=== PATIENT | female | born 1970 | race Caucasian/White ===

== ENCOUNTER 2016-09-12 06:33 | Day surgery (SDC) | payer BC, OTHER ==
[2016-09-08 11:52] VITALS: BMI 23.6
[~2016-09-12 06:33] MED LIST: BUPIVACAINE HCL/PF 0.5% (5MG/ML) 10 ML VIAL IJ ONE
[2016-09-12] MEDS ORDERED: MIDAZOLAM HCL 2 MG/2 ML SINGLE DOSE VIAL ONE (07:17)
[2016-09-12] MEDS ORDERED: PROPOFOL 20 ML ONE ×5 (07:17→08:38)
[2016-09-12] MEDS ORDERED: NEOSTIGMINE METHYLSULFATE 0.5 MG/ML - 10 ML MDV ONE (07:22)
[2016-09-12] MEDS ORDERED: SUCCINYLCHOLINE CHLORIDE 200 MG/10 ML VIAL ONE (07:24)
[2016-09-12] MEDS ORDERED: ROCURONIUM BROMIDE 50 MG/5 ML VIAL ONE ×3 (07:25→08:36)
[2016-09-12] MEDS ORDERED: SEVOFLURANE 250 ML BTL ONE (07:35)
[2016-09-12] MEDS ORDERED: BUPIVACAINE HCL/PF 0.5% (5MG/ML) 10 ML VIAL ONE (09:42)
[2016-09-12] MEDS ORDERED: BUPIVACAINE HCL/PF 0.5% (5MG/ML) 10 ML VIAL IJ ONE (09:48)
[2016-09-12] MEDS ORDERED: ONDANSETRON 4 MG/2 ML VIAL IVPB PRN (10:03)
[2016-09-12] MEDS ORDERED: oxyCODONE HCL 5 MG TABLET PO PRN (10:03)
[2016-09-12] MEDS ORDERED: IBUPROFEN 800 MG/8 ML IJ IVPB PRN (10:03)
[2016-09-12] MEDS ORDERED: IBUPROFEN 600 MG TABLET (FP) PO PRN (10:03)
--- NOTE | 2016-09-12 10:10 | HP ---
Past Medical History - Primary Care Physician PCP:: Marco Antonio Winston - Admission Chief Complaint: Menometrorrhagia, bilateral adnexal masses, elevated tumor markers, fibroid uterus History of Present Illness: Menometrorrhagia, bilateral adnexal masses, elevated tumor markers, fibroid uterus History Source: Patient, Medical Record Limitations to Obtaining History: No Limitations - Past Medical History TURN OUT WORKER: No: Alzheimer's, CVA, Dementia, Migraine, Multiple Sclerosis, Peripheral Neuropathy, Parkinson's, Seizure, Syncope, TIA, Vertigo, Other Cardiovascular: No: AFIB, Aneurysm, Aortic Insufficiency, Aortic Stenosis, CAD, CHF, Deep Vein Thrombosis, HTN, Hyperlipdemia, DC, Mitral Insufficiency, Mitral Stenosis, Murmur, Pulmonary Hypertension, Other Pulmonary: No: Asthma, Bronchitis, Cancer, COPD, O2 Dependent, Pneumonia, Previously Intubated, Pulmonary Embolus, Pulmonary Fibrosis, Sleep Apnea, Other Gastrointestinal: No: Ascites, Cancer, Constipation, Crohn's Disease, Diverticulitis, Diverticulosis, Esophageal Varices, Gastritis, GERD, GI Bleed, Hemorrhoids, Hiatal Hernia, Inflamatory Bowel Disease, Irritable Bowel Disease, Pancreatitis, Peptic Ulcer Disease, Ulcerative Colitis, Other Hepatobiliary: No: Cirrhosis, Cholelithiasis, Cholecystitis, Choledocholithiasis , Hepatitis A, Hepatitis B, Hepatitis C, Other Renal/: No: Renal Failure, Renal Inusuff, BPH, Cancer, Hematuria, Hemodialysis , Neurogenic Bladder, Renal Calculi, UTI, Other Reproductive: Yes: Fibroids ...Para: 3 Infectious Disease: No: AIDS, C-Diff, Herpes Zoster, HIV, MRSA, STD's, Tuberculosis, VREF, Other Psych: Yes: Anxiety Rheumatology: No: Fibromyalgia, Gout, Lupus, Rheumatoid Arthritis, Sarcoidosis, Vasculitis, Other ENT: No: Allergic Rhinitis, Sinusitis, Other Endocrine: No: [place]'s Disease, Primo's Disease, Diabetes Insipidus, Diabetes Mellitus, Hyperparathyroidism, Hyperthyroidism, Hypothyroidism, Osteopenia, SIADH, Other Dermatology: No: Basal Cell, Cellulitis, Eczema, Melanoma, Psoriasis, Squamous Cell, Other - Past Surgical History Past Surgical History: Yes: , Tubal Ligation Hx Myomectomy: No Hx Transabdominal Cerclage: No - Smoking History Smoking history: Never smoked Have you smoked in the past 12 months: No - Alcohol/Substance Use Hx Alcohol Use: Yes (OCC) History of Substance Use: reports: None - Social History ADL: Independent History of Recent Travel: No Home Medications - Allergies Allergies/Adverse Reactions: Allergies Allergy/AdvReac Type Severity Reaction Status Date / Time No Known Drug Allergies Allergy Verified 09/12/16 06:56 - Home Medications Home Medications: Ambulatory Orders NK [No Known Home Medication] 09/08/16 Family Disease History - Family Disease History Family History: Denies Review of Systems - Review of Systems Constitutional: reports: No Symptoms Eyes: reports: No Symptoms HENT: reports: No Symptoms Neck: reports: No Symptoms Cardiovascular: reports: No Symptoms Respiratory: reports: No Symptoms Gastrointestinal: reports: No Symptoms Genitourinary: reports: No Symptoms Breasts: reports: No Symptoms Reported Musculoskeletal: reports: No Symptoms Integumentary: reports: No Symptoms Neurological: reports: No Symptoms Endocrine: reports: No Symptoms Hematology/Lymphatic: reports: No Symptoms Psychiatric: reports: No Symptoms Pain Intensity: 0 Physical Exam-JAVA APPLICATION DEVELOPER Vital Signs: Vital Signs Temperature 98.1 F 09/12/16 06:59 Pulse Rate 68 09/12/16 06:59 Respiratory Rate 18 09/12/16 06:59 Blood Pressure 95/66 09/12/16 06:59 O2 Sat by Pulse Oximetry (%) 100 09/12/16 06:59 Constitutional: Yes: Well Nourished, No Distress, Calm Eyes: Yes: WNL, Conjunctiva Clear HENT: Yes: WNL, Atraumatic, Normocephalic Neck: Yes: WNL, Supple, Trachea Midline Cardiovascular: Yes: WNL, Regular Rate and Rhythm Respiratory: Yes: WNL, Regular, CTA Bilaterally Gastrointestinal: Yes: WNL, Normal Bowel Sounds, Soft ...Rectal Exam: Yes: Deferred Renal/: Yes: WNL Pelvis: Yes: WNL External Genitalia: Yes: Normal Internal Exam Deferred: No Vaginal Exam: Yes: Normal Cervix: Yes: Normal Uterus: Yes: Enlarged, Lumpy, Mass Adnexa: Normal: Right, Mass: Left Breast(s): Yes: WNL Musculoskeletal: Yes: WNL Extremities: Yes: WNL Edema: No Integumentary: Yes: WNL Neurological: Yes: WNL, Alert, Oriented ...Motor Strength: WNL Psychiatric: Yes: WNL, Alert, Oriented Imaging - Results Ultrasound: Report Reviewed MRI: Report Reviewed Assessment/Plan 46yo P3 with menometrorrhagia and bilateral adnexal cystic masses, fibroid uterus, elevated tumor markers admitted for D&C and laparoscopic salpingoophorectomy. We had discussed the risks, benefits, alternatives of surgery at length including but not limited to infection, bleeding, scarring, perforation, amenorrhea, infertility, hysterectomy, injury to surrounding/ underlying organs or structure, need for additional surgery to repair/treat any complications, etc. The patient verbalized understanding and requested to proceed with surgery. I emphasized that all surgeries have risks and no guarantees can be provided.
[2016-09-12] MEDS ORDERED: ELECTROLYTE-148 SOLN 1,000 ML IV SCH (10:15)
[2016-09-12] MEDS ORDERED: ONDANSETRON 4 MG/2 ML VIAL IVPUSH PRN (10:18)
[2016-09-12] MEDS ORDERED: LACTATED RINGERS SOLUTION 1,000 ML IV SCH (10:30)
--- NOTE | 2016-09-12 10:30 | OP ---
Operative Note - Note: Operative Date: 09/12/16 Pre-Operative Diagnosis: Menometrorrhagia, bilateral adnexal cystic masses, elevated tumor markers, fibroid uterus Operation: left salpigoophorectomy, right salpingectomy, excision of right paraovarian cyst, D&C Findings: 1. bulky fibroid uterus 2. 5 cm posterio uteine myoma 3. uterus densely adherent to anterior abdominal wall with limited mobility 4. left adnexa encapsulated in severe scarring tissue and contained a large cystic mass that was most c/w endometrioma. 5. normal right ovary 6. simple right paraovarian cyst Post-Operative Diagnosis: Same as Pre-op Surgeon: Marco Antonio Winston Supervisor Melt House: Theresa Lee Anesthesiologist/AUTO PARTS MANAGER: Ysabel Swartz Anesthesia: General Specimens Removed: 1. endometrial curettings. 2. left salpingoophorectomy. 3. right salpingectomy. 4. right para-ovarian cyst Estimated Blood Loss (mls): 20 Drains & Tubes with Location: Clark cath Drains, Volume Out (mls): 100 Blood Volume Replaced (mls): 0 Fluid Volume Replaced (mls): 1,400 Operative Report Dictated: Yes
--- NOTE | 2016-09-12 11:26 | OP ---
DATE OF OPERATION: 09/12/2016 PREOPERATIVE DIAGNOSES: 1. Menometrorrhagia. 2. Bilateral adnexal cystic masses. 3. Elevated tumor markers. 4. Uterine fibroids. POSTOPERATIVE DIAGNOSES: 1. Menometrorrhagia. 2. Bilateral adnexal cystic masses. 3. Elevated tumor markers. 4. Uterine fibroids. PROCEDURE: Dilation and curettage, laparoscopic left salpingo-oophorectomy. Laparoscopic right salpingectomy, excision of a right paraovarian cyst. SURGEON: Marco Antonio Winston MD RESIDENT ADVISOR: Theresa Lee MD ANESTHESIOLOGIST: Ysabel Swartz MD ANESTHESIA: General. COMPLICATIONS: None. ESTIMATED BLOOD LOSS: 20 mL. URINE OUTPUT: 100 mL of clear urine at the end of the procedure. IV FLUIDS: 1400 mL of crystalloid. PATHOLOGY: Endometrial curettings, left salpingo-oophorectomy, right salpingectomy, right paraovarian cyst. DESCRIPTION OF PROCEDURE: The patient was met preoperatively. Risks, benefits, and alternatives of surgery were discussed in detail. All questions were answered. The patient was brought to the OR with the IV running. She was placed on the surgical table in the supine position. General anesthesia was achieved without difficulty. The patient was then placed in a dorsal lithotomy position using adjustable Norberto stirrups. She was examined under anesthesia. The examination under anesthesia revealed a bulky uterus with a posterior myoma. The cervical os was flexed ventrally. The examination under anesthesia revealed a palpable left adnexal mass. The right adnexa appeared within normal limits. At laparoscopy, a 5-cm posterior fibroid was noted. The uterus was densely adherent to the anterior abdominal wall with limited mobility. The left adnexa was encapsulated in scar tissue and contained a large cystic mass most likely consistent with an endometrioma. The right ovary appeared to be within normal limits. The right adnexa contained a simple paraovarian cyst. The visualized portions of the bowel, liver, and stomach appeared to be within normal limits. The suction curettage was performed first in the following method. The patient was positioned in a dorsal lithotomy position. A weighted speculum was introduced inside the vagina with good visualization of the cervix. The cervix was gently dilated to accommodate size 19 Conteh dilator. A uterine curettage was then performed, and the tissue was submitted to Pathology. The surgeons then regloved and proceeded with the laparoscopy part of the procedure. A 5-mm incision was made inside the umbilicus. An Optiview trocar was introduced through the umbilical incision under direct visualization. Once the trocar was inserted, the abdominal cavity was insufflated with the intra-abdominal pressure not exceeding 15 mmHg. Survey of the abdomen and peritoneum revealed the findings as described earlier. A second 10-mm trocar was introduced in the right lower quadrant. A 5-mm trocar was then introduced in the left lower quadrant, and another 5-mm trocar was introduced in the left mid quadrant under direct visualization with the laparoscope. Atraumatic placement was confirmed for all trocars. The surgeons then proceeded with the lysis of adhesions to free up the left adnexa. The omentum was noted to be adherent to the left adnexa, and the adhesions were cut with good hemostasis. The left adnexa was also dissected away from the pelvic sidewall. The infundibulopelvic ligament was then cauterized and transected using LigaSure. Good hemostasis was noted. The utero-ovarian ligament and the left fallopian tube were also cauterized and transected using LigaSure with good hemostasis. The attention was then directed to the right side. The right ovary appeared to be within normal limits. There was a simple left paraovarian cyst. The left fallopian tube was excised using the LigaSure. The left paraovarian cyst was also excised using LigaSure. Once again, good hemostasis was noted. An EndoCatch specimen bag was then introduced inside the abdomen. All of the specimens were placed in the Endo bag and retrieved from the abdomen. All of the specimens were sent to Pathology. The operative site was then irrigated using copious amounts of normal saline. Once the saline was aspirated, good hemostasis was confirmed. The 10-mm left lower quadrant incision at that closed laparoscopically with good approximation and hemostasis. The 5-mm incisions were then closed using 4-0 Biosyn sutures for the skin. The patient tolerated the procedure well. Sponge, lap, and needle counts were correct. The patient was transferred to the recovery room in stable condition and awake. Linda [id number]
[2016-09-12 12:34] VITALS: TEMP 97.8
[2016-09-12 14:16] VITALS: BP 103/57; PULSE 66
--- NOTE | 2016-09-15 10:42 | PATH ---
Surgical Pathology Report Patient Name: MARIN RAMÍREZ [facility]. Rec. #: [id number] /Age/Gender: 1970 (Age: 46) / F Account: [id number] Location: [facility] SURGICAL Taken: 09/12/2016 Received: 09/12/2016 Reported: 09/15/2016 Physicians: Marco Antonio Winston M.D. Specimen(s) Received A: ENDOMETRIAL CURETTINGS B: LEFT OVARY & FALLOPIAN TUBE/RIGHT FALLOPIAN TUBE AND CYST Clinical History Menorrhagia, adnexal cyst Final Diagnosis A. ENDOMETRIUM, CURETTAGE: FRAGMENTS OF PREDOMINANTLY SECRETORY ENDOMETRIUM WITH FOCAL AREAS SUGGESTIVE OF ENDOMETRIAL POLYP. FRAGMENTS OF BENIGN SMOOTH MUSCLE. B. OVARY AND FALLOPIAN TUBE, LEFT AND RIGHT, LEFT SALPINGO-OOPHORECTOMY, RIGHT SALPINGECTOMY AND EXCISION OF RIGHT PAROVARIAN CYST: OVARY WITH MUCINOUS CYSTADENOMA, HEMORRHAGIC CORPUS LUTEUM AND CYSTIC FOLLICLES. FALLOPIAN TUBES WITH PARATUBAL CYST AND FOCAL FIBRINOHEMORRHAGIC ADHESIONS. Electronically Signed Osman Haq M.D. Gross Description A. Received in formalin labeled "endometrial curettage" is a 4.0 x 2.3 x 0.4 cm aggregate of castillo-pink soft tissue fragments. The formalin is filtered and the specimen is entirely submitted in 2 cassettes. B. Received in formalin labeled "left ovary, fallopian tube, right fallopian tube, right paraovarian cyst" are 2 undesignated, fimbriated portions of fallopian tube averaging 1.5 cm in length. Both portions display an intact paratubal cyst containing clear serous fluid. Also received within the same container is a 1.5 cm greatest dimension intact cyst containing clear serous fluid. Additionally, there is an 8.0 x 6.0 x 1.3 cm aggregate of multiple castillo-yellow, undesignated, fragmented portions of ovary. Sectioning of the portions of ovary reveals a focal hemorrhagic corpus luteum as well as multiple fragments of cysts containing serous fluid. Bit Tapper sections are submitted in 10 cassettes as follows: 1-fimbria and paratubal cyst from arbitrarily designated fallopian tube one; 8-xsfpz-bkhtwool of fallopian tube one; 3-fimbria and paratubal cyst from arbitrarily designated fallopian tube two; 9-ylqia-wvkwdcst of fallopian tube two; 5-separate presumed paratubal cyst; 1-02-ubfbyzispstbjq fragments of undesignated ovary. 09/12/2016 [facility]09/12/2016
== END 2016-09-12 14:40 | disposition home or self-care (01) ==
LOC: JASU-SURG 06:33
PROVIDERS: ATTEND Obstetrics & Gynecology
PROC: 0UB04ZZ Excision of Right Ovary, Percutaneous Endoscopic Approach (ICD-10-PCS; 2016-09-12)
PROC: 0UDB7ZX Extraction of Endometrium, Via Natural or Artificial Opening, Diagnostic (ICD-10-PCS; 2016-09-12)
PROC: 0UB14ZZ Excision of Left Ovary, Percutaneous Endoscopic Approach (ICD-10-PCS; principal; 2016-09-12 08:00)
PROC: 0UB74ZZ Excision of Bilateral Fallopian Tubes, Percutaneous Endoscopic Approach (ICD-10-PCS; 2016-09-12 08:00)
DX: N92.0 Excessive and frequent menstruation with regular cycle (principal); D25.9 Leiomyoma of uterus, unspecified; N83.201 Unspecified ovarian cyst, right side; R97.8 Other abnormal tumor markers
CPT/HCPCS: 84703; 88305-TC; 88307-TC; 94760

== ENCOUNTER 2018-04-07 23:20 | Emergency (ER) | payer BC, OTHER ==
[2018-04-08 00:02] VITALS: BP 113/75; PULSE 82; TEMP 98.3; BMI 24.2
--- NOTE | 2018-04-08 02:57 | PDOC ---
Attending Attestation - Resident Resident Name: SreekanthOsman - ED Attending Attestation I have performed the following: I have examined & evaluated the patient, The case was reviewed & discussed with the resident, I agree w/resident's findings & plan - HPI HPI: 04/08/18 03:30 48-year-old female with intermittent shortness of breath 1 month , associated with her anxiety. She denies history of trauma. There is no associated nausea vomiting diarrhea fever or urinary symptoms. She generally has palpitations associated with her symptoms as well. - Physicial Exam PE: 04/08/18 03:31 GENERAL: Awake, in no acute distress HEAD: No signs of trauma EYES: ENT:clear without exudates. Moist mucosa NECK: Normal ROM, LUNGS:. Normal work of breathing. HEART: Regular rate and rhythm, ABDOMEN: Soft, nondistended CHEST WALL: BACK: No midline tenderness. EXTREMITIES:. No erythema, or tenderness NEUROLOGICAL: Alert, SKIN: Warm, Dry - Medical Decision Making 04/08/18 03:31 48-year-old female with chronic anxiety related dyspnea EKG shows a normal sinus rhythm at 78 bpm with no acute ST elevations patient is feeling better at the time of my evaluation, she was offered additional evaluation such as blood work which she is refusing at this time stating her primary care physician has already ordered She is requesting to go home She will be advised to follow up with both her primary care and cardiology for baseline testing which she has agreed to do Impression dyspnea, intermittent Anxiety 04/08/18 03:32
--- NOTE | 2018-04-08 03:14 | PDOC ---
History of Present Illness - General Chief Complaint: Shortness of Breath Stated Complaint: CHEST PRESSURE,DIFF. BREATHING Time Seen by Provider: 04/08/18 02:57 - History of Present Illness Initial Comments: 48 year old female with PMH of anxiety (on escitalopram in the past) presenting with SOB for the past month with feeling of" not being able to take a deep breath". Denies any discreet chest pain, fevers, chills, nausea, vomiting, diarrhea. She has had this exact shortness of breath for the past 20 years on and off and it was better when she took her escitalopram but she discontinued it because she thought she was better a few years back. She came in today because she states that the shortness of breath evolved into a headache which she hasn't experienced in the past. The headache is mild, frontal and only 3/10 in intensity but she "just wanted to make sure it was all OK". Denies OCP use, recent travel, or recent injury. She saw her PCP a week ago who was unconcerned. She has not seen her psychiatrist. 04/08/18 03:07 Past History - Past Medical History Allergies/Adverse Reactions: Allergies Allergy/AdvReac Type Severity Reaction Status Date / Time No Known Drug Allergies Allergy Verified 09/12/16 06:56 Home Medications: Ambulatory Orders NK [No Known Home Medication] 04/08/18 Anemia: Yes Thyroid Disease: No - Suicide/Smoking/Psychosocial Hx Smoking History: Never smoked Have you smoked in the past 12 months: No Information on smoking cessation initiated: No Hx Alcohol Use: No Drug/Substance Use Hx: No Substance Use Type: Alcohol Review of Systems - Review of Systems Constitutional: No: Chills, Diaphoresis, Fever, Loss of Appetite HEENTM: No: Blurred Vision, Tearing Respiratory: Yes: Shortness of Breath. No: Cough, Orthopnea, SOB with Exertion , Stridor, Wheezing Cardiac (ROS): No: Edema, Irregular Heart Rate ABD/GI: No: Diarrhea, Nausea, Vomiting : No: Dysuria, Discharge Musculoskeletal: No: Back Pain, Gout, Joint Pain Integumentary: No: Lumps, Pallor, Pruritus Neurological: No: Numbness, Paresthesia, Tingling, Tremors Psychiatric: Yes: Anxiety, Depression, Stressors Hematologic/Lymphatic: No: Anemia, Blood Clots, Easy Bleeding *Physical Exam - Vital Signs Last Vital Signs Temp Pulse Resp BP Pulse Ox 98.3 F 82 18 113/75 100 04/07/18 23:55 04/07/18 23:55 04/07/18 23:55 04/07/18 23:55 04/07/18 23:55 - Physical Exam General Appearance: Yes: Nourished, Appropriately Dressed. No: Apparent Distress HEENT: positive: EOMI, JAMES, Normal ENT Inspection, Normal Voice Neck: positive: Trachea midline, Normal Thyroid, Supple. negative: Tender, Rigid Respiratory/Chest: positive: Lungs Clear, Normal Breath Sounds. negative: Chest Tender, Respiratory Distress, Accessory Muscle Use Cardiovascular: positive: Regular Rhythm, Regular Rate Gastrointestinal/Abdominal: positive: Normal Bowel Sounds, Flat, Soft. negative : Tender Musculoskeletal: positive: Normal Inspection. negative: Decreased Range of Motion Extremity: positive: Normal Capillary Refill, Normal Inspection, Normal Range of Motion. negative: Tender Integumentary: positive: Normal Color, Dry, Warm Neurologic: positive: Fully Oriented, Alert, Normal Mood/Affect, Normal Response , Motor Strength 5/5 Moderate Sedation - Procedure Monitoring Vital Signs: Procedure Monitoring Vital Signs Temperature 98.3 F 04/07/18 23:55 Pulse Rate 82 04/07/18 23:55 Respiratory Rate 18 04/07/18 23:55 Blood Pressure 113/75 04/07/18 23:55 O2 Sat by Pulse Oximetry (%) 100 04/07/18 23:55 Medical Decision Making - Medical Decision Making 48 year old female with long standing history of anxiety and shortness of breath. Patient wanted reassurance because of very mild headache. Patient's headache resolved on presentation because of home Tylenol usage. EKG demonstrating rate 78, W[place] 158, QRS 90, QTc 458, normal axis, and no ST or T wave changes. No sign of Brugada or WPW. Patient refused labs. She will follow up with PCP and cards then psych. DC'd with return precautions and cards follow up in case she cannot through her PCP. 04/08/18 03:21 *DC/Admit/Observation/Transfer Diagnosis at time of Disposition: Shortness of breath - Discharge Dispostion Disposition: HOME Condition at time of disposition: Improved Decision to Admit order: No - Referrals Referrals: Andrew Arguelles MD [Primary Care Provider] - Kenneth Ram MD [Staff Physician] - - Patient Instructions Printed Discharge Instructions: DI for Shortness of Breath Additional Instructions: Please take Tylenol or Motrin for your headache as it seemed to help. Please follow up with your PCP and our pipe and tank fabricator or one that your PCP prescribes. Please see your psychiatrist after your PCP and pipe and tank fabricator evaluate you. - Post Discharge Activity
--- NOTE | 2018-04-08 12:22 | EKG ---
Test Reason : Blood Pressure : / mmHG Vent. Rate : 078 BPM Atrial Rate : 078 BPM P-R Int : 158 ms QRS Dur : 090 ms QT Int : 402 ms P-R-T Axes : 055 087 063 degrees QTc Int : 458 ms NORMAL SINUS RHYTHM NORMAL ECG NO PREVIOUS ECGS AVAILABLE Confirmed by DARYN FERNANDEZ MD ([id number]) on 04/08/2018 12:22:17 PM Referred By: Confirmed By:DARYN FERNANDEZ MD
== END 2018-04-08 03:58 | disposition home or self-care (01) ==
LOC: JER 23:20
DX: R06.02 Shortness of breath (principal); R41.9 Unspecified symptoms and signs involving cognitive functions and awareness
CPT/HCPCS: 93005; 93010; 99281-25